=== PATIENT | female | born 2000 | race Two or more races ===

== ENCOUNTER 2018-08-07 12:47 | Emergency (ER) | payer OTHER ==
[~2018-08-07] VITALS: Ht 160 cm; Wt 75.3 kg
== END 2018-08-07 17:21 | disposition home or self-care (01) ==
LOC: ER 12:47
DX: O20.0 Threatened abortion (principal)

== ENCOUNTER 2019-05-10 10:57 | Inpatient (IN) | payer OTHER ==
[~2019-05-10] VITALS: Ht 160 cm; Wt 2.7 kg
[~2019-05-10 10:57] MED LIST: PRENATAL + DHA1 EAC1
== END 2019-05-14 14:18 | disposition home or self-care (01) | DRG 788 ==
LOC: OB/GYN 05-11 05:51 → O/R 05-11 05:51 → OB/GYN 05-11 09:39
PROVIDERS: ADMIT Obstetrics & Gynecology
PROC: 4A1HXCZ Monitoring of Products of Conception, Cardiac Rate, External Approach (ICD-10-PCS; 2019-05-11)
PROC: 10D00Z1 Extraction of Products of Conception, Low, Open Approach (ICD-10-PCS; principal; 2019-05-11 15:15)
DX: O82 Encounter for cesarean delivery without indication (principal); O64.1XX0 Obstructed labor due to breech presentation, not applicable or unspecified; Z3A.39 39 weeks gestation of pregnancy; Z37.0 Single live birth

== ENCOUNTER 2021-09-24 08:15 | Inpatient (IN) | payer OTHER ==
[~2021-09-24] VITALS: Ht 160 cm; Wt 2.7 kg
[2021-10-02] MEDS ORDERED: FOLIC ACID1 MG (09:05)
[2021-10-02] MEDS ORDERED: MOMETASONE FURO15 G2 (09:05)
[2021-10-02] MEDS ORDERED: PROPRANOLOL HCL20 MG (09:05)
[2021-10-02] MEDS ORDERED: ADAPALENE45 GM (11:28)
[2021-10-02] MEDS ORDERED: DML FORTE CREA113 GM (11:28)
[2021-10-02] MEDS ORDERED: PRENATAL CAPLE1 EAC1 (11:28)
== END 2021-10-04 12:46 | disposition home or self-care (01) | DRG 788 ==
LOC: LDR 10-02 07:22 → O/R 10-02 07:22 → OB/GYN 10-02 08:15 → O/R 10-02 08:37 → OB/GYN 10-02 09:15
PROVIDERS: ADMIT Obstetrics & Gynecology; ATTEND Obstetrics & Gynecology
PROC: 4A1HXCZ Monitoring of Products of Conception, Cardiac Rate, External Approach (ICD-10-PCS; 2021-10-02)
PROC: 10D00Z1 Extraction of Products of Conception, Low, Open Approach (ICD-10-PCS; principal; 2021-10-02 11:45)
DX: O34.211 Maternal care for low transverse scar from previous cesarean delivery (principal); Z3A.39 39 weeks gestation of pregnancy; Z37.0 Single live birth; Z20.822 Contact with and (suspected) exposure to COVID-19

== ENCOUNTER 2022-08-18 09:59 | Emergency (ER) | payer OTHER ==
[~2022-08-18] VITALS: Ht 160 cm; Wt 75.7 kg
[~2022-08-18 09:59] MED LIST changes: +ADAPALENE45 GM; +DML FORTE CREA113 GM; +FOLIC ACID1 MG; +MOMETASONE FURO15 G2; +PRENATAL CAPLE1 EAC1; +PROPRANOLOL HCL20 MG
== END 2022-08-18 13:06 | disposition home or self-care (01) ==
LOC: ER 09:59
DX: N94.6 Dysmenorrhea, unspecified (principal); Z91.018 Allergy to other foods

== ENCOUNTER 2022-10-16 08:31 | Day surgery (SDC) | payer OTHER ==
[~2022-10-16] VITALS: Ht 160 cm; Wt 74.4 kg
[2022-10-16] MEDS ORDERED: TRAM1TAB98 PO (12:17)
[2022-10-16] MEDS ORDERED: NAPROXEN SODIU500 M1 PO (12:18)
== END 2022-10-16 16:45 | disposition home or self-care (01) ==
LOC: CIR.AMB 08:31
PROVIDERS: ATTEND Obstetrics & Gynecology
DX: Z30.2 Encounter for sterilization (principal); Z64.1 Problems related to multiparity; Z91.013 Allergy to seafood; Z91.018 Allergy to other foods